=== PATIENT | male | born 1955 | race Caucasian/White ===

== ENCOUNTER 2023-01-02 13:28 | Emergency (ER) | payer OTHER ==
[2023-01-02 14:57] VITALS: BP 95/67; PULSE 72; RESP 18; TEMP 97.8; BMI 21.2
== END 2023-01-02 17:27 | disposition home or self-care (01) ==
LOC: FER 13:28
DX: S09.90XA Unspecified injury of head, initial encounter (principal); W18.2XXA Fall in (into) shower or empty bathtub, initial encounter
CPT/HCPCS: 70450-TC; 72125-TC; 99284-25